=== PATIENT | female | born 1980 | race Caucasian/White ===

== ENCOUNTER → 2016-09-09 | Outpatient (CLI) | payer BC ==
[~2016-09-09] MED LIST: LEVO25TA5 PO; LEVOIUD INT UTER; NORE-38 PO; ULT50 PO
[2016-09-09 12:54] LABS: ESTIMATED AVERAGE GLUCOSE 140 mg/dl; HA1C FLAG Normal (Normal)
[2016-09-09 13:48] LABS: CHOLESTEROL/HDL RATIO 4.4; THYROID STIMULATING HORMONE 7.9 uIu/ml (0.300-4.500)
== END | disposition home or self-care (01) ==
LOC: C.LABPBG 09:46
PROVIDERS: ATTEND Family Medicine
DX: Z00.00 Encounter for general adult medical examination without abnormal findings (principal); F41.1 Generalized anxiety disorder; E66.01 Morbid (severe) obesity due to excess calories

== ENCOUNTER → 2016-12-31 | Outpatient (CLI) | payer BC | END | disposition home or self-care (01) | LOC: C.LABPBG 10:01 | PROVIDERS: ATTEND Family Medicine | DX: E03.9 Hypothyroidism, unspecified (principal) ==

== ENCOUNTER → 2016-12-31 | Outpatient (CLI) | payer BC ==
[2017-01-01 12:08] LABS: URINE APPEARANCE TURBID (CLEAR); URINE BILIRUBIN NEG (NEG); URINE COLOR DK YELLOW; URINE EPITHELIAL CELL AUTO 20-30 /lpf (0-5); URINE NITRITE NEG (NEG); URINE SPECIFIC GRAVITY 1.024 (1.000-1.030); UROBILINOGEN NEG (NEG)
[2017-01-01 12:09] LABS: MANUAL MICROSCOPIC REQUIRED? NO; REVIEW REQ? NO
== END | disposition home or self-care (01) ==
LOC: C.LABSPEC 11:16
PROVIDERS: ATTEND Nurse Practitioner Adult Health
DX: R30.0 Dysuria (principal)

== ENCOUNTER → 2017-01-30 | Outpatient (CLI) | payer BC ==
--- NOTE | 2017-01-31 05:51 | PAP/PSG TECHNICIAN REPORT ---
[facility] Box Office Clerk Polysomnogram Report Study name: None Report date: 01/31/2017 Study date: 01/30/2017 Referring Physician: Sae Paul M.D. Name: ANAHI MCGUIRE Interpreting Physician: Shaji Peralta M.D. Date of : 1980 Box Office Clerk: Verónica Lyman [facility]. Sex: Female Age: 36 StudyType: PSG Weight: 311 lbs Height: 36 years, Height 5' 3" Neck Circum: 19inches BMI: 55.09 Medications: Levoxyl 75mcg, Drisdol [id number], Lexapro 10mg, Mirena 20mcg/24 hr IUD Patient History Study started on room air with ETCO2 monitoring in room #6. 36 yr old female here tonight for a possible split psg. She complains of heavy snoring and witnessed apnea. She awakens with a headache. She sleeps propped up with 4 pillows. 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 Her ESS=12/24. Her neck circ=19inches. She is going to have gastric bypass surgery. Parameters Monitored NPSG: E1-M2, E2-M1, Fp1-M2, Fp2-M1, F3-M2, F4-M2, F4-M1, C3-M2, C4-M2, C4-M1, O1-M2, O2-M2, O2-M1, T3-M2, T4-M1, P3-M2, P4-M1, CHIN1, CHIN2, HR, EKG, Legs, PFLOW, SNOR, FLOW, CFLOW, Tidal Volume, THOR, ABDO, SpO2, PLTH, CPRESS, ETCO2 Wave, ETCO2, pH Sleep Architecture Sleep Stages Time at Lights Off 9:58:45 PM STAGES Time (min.) TST (%) Time at Lights On 5:32:15 AM Wake 188.0 -- Total Recording Time (TRT) 453.50 min. N1 33.5 13 Total Sleep Period (TSP) 403.0 min. N2 157.5 59 Total Sleep Time (TST) 265.0min. N3 47.0 18 Awake Time 188.0 min. REM 27.0 10 Wake after Sleep Onset 138.0 min. Sleep Efficiency (SE) 58 % Sleep Onset Latency (GALA) 50.5 min. Number of Stage 1 Shifts None Awakenings 35 Stage Changes 113 Number of REM periods 2 REM 27.0 10 REM Latency 295.0 min. NREM 238.0 90 Body Position Analysis Supine Right Left Side Prone Vertical Total Sleep Time (min.) 199.7 22.4 130.6 153.06 0.0 0.0 Total Sleep Time (%) 42% 8% 49% 58 0% N/A% Total Sleep Time REM (min.) 27.0 0.0 0.0 None 0.0 0.0 Total Sleep Time NREM (min.) 84.9 22.4 130.6 None 0.0 0.0 Intermittent Wake (min.) 87.8 52.6 47.6 None 0.0 0.0 Total Sleep Period (%) 43% None None None None None Arousals Myoclonus (PLM) * Events Count Index Events Count Index Spontaneous 15 3 Events Awake (PLMW) 137 43.7 Respiratory 3 0.9 Events Asleep w/ Arousal (PLMA) 27 6.1 PLM 26 6 Events Asleep w/o Arousal (PLMS) 148 33.5 Snoring 7 2 Total Asleep 175 39.6 Total 51 12 Total 312 41 Respiratory Analysis * CA OA MA CH H RERA Total Count 0 3 0 0 51 0 54 Index 0.0 0.7 0.0 0 11.5 0 12.2 Mean Duration 0.0 15.8 0.0 0.00 21.0 0.0 20.7 Longest Duration 0.0 19.4 0.0 0.00 0.0 0.0 71.1 Respiratory Event Summary Total Supine ~Supine Right Left Prone REM NREM Apneas Count 3 2 1 0 1 N/A 0 3 Index 0.7 1 0 0.0 0.5 N/A 0 1 Hypopneas (4% Desat) Count 51 43 8 1 7 N/A 29 22 Index 11.5 23.0 3 2.7 3.2 N/A 64.4 5.5 Apneas & All Hypopneas Count 54 45 9 1 8 N/A 29 25 Index 12.2 24 4 3 4 N/A 64.4 6.3 Respiratory Events (Jboss Developer+All Hyp+RERA) Count 54 45 9 1 8 N/A 29 25 Index 12.2 24 4 2.7 3.7 N/A 64.4 6.3 Respiratory Related Arousal Count 3 45 2 0 2 N/A 1 3 Index 0.9 1 1 0 1 N/A 2 1 Snoring Analysis Supine Right Left Prone REM NREM Total Snore duration 4.7 min Snores count 127 12 84 N/A 16 207 223 Snore mean duration 1.3 Sec Snores index 68 32 39 N/A 35.6 52.2 50.5 TST with snoring (%) 1.8% SpO2 Analysis Total REM NREM Awake <50% 0.0 min. 0.0 min. 0.0 min. 0.0 min. 51 - 60% 0.0 min. 0.0 min. 0.0 min. 0.0 min. 61 - 70% 1.1 min. 1.1 min. 0.0 min. 0.0 min. 71 - 80% 8.9 min. 8.7 min. 0.2 min. 0.0 min. 81 - 90% 396.1 min. 17.3 min. 234.5 min. 144.4 min. 91 - 100% 38.5 min. 0.0 min. 2.8 min. 35.7 min. Average 88 82 88 89 Minimum SpO2 65 65 77 83 Desaturation Event Index 15.8 51.1 15.6 11.2 # Desat. Events below 89% 112 22 62 28 Time(%) with Saturation below 89% 53.5 5.4 36.9 11.2 Time(min.) with Saturation below 89% 237.9 24.0 164.0 50.0 Heart Rate Analysis End Tidal CO2 Analysis Min (bpm) Max (bpm) Average (bpm) TSP (mins) % of TSP Awake 52 225 80 Above 55 mmHg 8.9 3.4 NREM 60 127 76 50-55 mmHg 133.1 50.2 REM 67 99 80 45-50 mmHg 116.7 44.0 Overall 60 127 76 40-45 mmHg 5.7 2.2 35-40 mmHg 0.3 0.1 30-35 mmHg 0.3 0.1 Average ETCO2 0.0 Supplemental O2 Values Minimum O2 level: None Value Start Time End Time Box Office Clerk Comments Ms. Mcguire slept in the right, left and supine positions. No cardiac arrhythmia noted. PLM's were noted. No bruxism noted. Snoring was noted and scored as a 2 on a scale of 1 through 5. (0=no snoring, 5=snoring loud enough to be heard through a closed door or down the [address]cn[address] way) She did not use the restroom during the night. She stated that she did not sleep as well as when at home. The final report will be interpreted and signed by a sleep physician. The completed physician report will then be placed in the patient medical record Therapy (cm H2O) 0 TIB (min.) 453.0 TST (min.) 265.0 Sleep Onset (min.) 50.5 REM Onset From Sleep (min.) 295.0 Sleep Efficiency % 58 Wakefulness (%) 41 Wakefulness (min.) 188.0 NREM 1 (%) 13 NREM 1 (min.) 33.5 NREM 2 (%) 59 NREM 2 (min.) 157.5 NREM 3 (%) 18 NREM 3 (min.) 47.0 REM (%) 10 REM (min.) 27.0 # Arousals 51 Arousal Index 12 # Snore 223 Snore Index 50.5 AHI 12.2 AHI Supine 24 AHI Non-Supine 4 NREM AHI 6.3 REM AHI 64.4 RDI 12.2 # Obstructive Apnea 3 # Central Apnea 0 # Mixed Apnea 0 # Hypopneas 51 RERAs 0 Total Respiratory Events 58 Time Below SpO2 89% (min.) 187.9 Mean NREM SpO2 (%) 88 Mean REM SpO2 (%) 82 Mean Sleep SpO2 (%) 87 Min NREM SpO2 (%) 77 Min REM SpO2 (%) 65 Position Supine (min.) 199.7 Position Non-supine (min.) 153.1 LM Index Sleep 39.6 LM Index NREM 43.1 LM Index REM 8.9 Mean Heart Rate (bpm) 76 Min Heart Rate (bpm) 60
--- NOTE | 2017-01-31 13:59 | POLYSOMNOGRAPH REPORT ---
CLINICAL DATA: The patient is a 36-year-old female with a BMI of [address] Iggy Paul for a sleep study. She does have snoring and witnessed apnea. She sleeps propped up on 4 pillows. Her [place] sleepiness score is 12/24. She is going to have gastric bypass surgery. SLEEP ARCHITECTURE: Total sleep period was 403 minutes. Total sleep time was 265 minutes divided between 238 minutes of non-REM sleep and 27 minutes of REM sleep. Sleep onset latency was delayed at 50.5 minutes. REM latency was 295 minutes. Sleep efficiency was 58%. Awake after sleep onset was 138 minutes. Sleep consisted of stage N1 13%, stage N1 59%, stage N3 18%, and REM 10%. AROUSAL DATA: 51 arousals were recorded for an index of 12 per hour. PLM DATA: Mildly elevated limb movements during sleep were noted. There were 175 limb movements during sleep noted for an index of 39.6 per hour with arousal index of 6 per hour. RESPIRATORY DATA: Mild sleep apnea was documented. The AHI was 12.2. There were 3 obstructive apneic episodes. The longest apneic episode was 19.4 seconds. There were 51 hypopneic episodes with a mean duration of 21 seconds. OXIMETRY DATA: Nocturnal hypoxemia was seen. Oxygen [place] was 65%. Mean saturation was 88%. Time below 89% was 53.5 minutes. EKG: Heart rates ranged from 60-127 beats per minute. No arrhythmias were noted. DIAGNOSTIC IMAGING MANAGER'S COMMENTS: The patient slept in the right, left, and supine positions. Snoring was mild, rated 2 on a scale of 1-5. IMPRESSION: Mild obstructive sleep apnea/hypopnea with an AHI of 12.2 with significant nocturnal hypoxemia. RECOMMENDATIONS: The patient should proceed on with her gastric bypass surgery as planned. Treatment of sleep apnea either with CPAP titration study or auto CPAP may be of benefit. Clinical correlation is needed. [facility]
== END | disposition home or self-care (01) ==
LOC: C.NEUR 21:00
PROVIDERS: ATTEND Nurse Practitioner Family
DX: E66.2 Morbid (severe) obesity with alveolar hypoventilation (principal); G47.10 Hypersomnia, unspecified; G47.33 Obstructive sleep apnea (adult) (pediatric); R06.81 Apnea, not elsewhere classified